=== PATIENT | female | born 1950 | race Caucasian/White ===

== ENCOUNTER 2018-10-13 13:13 | Emergency (ER) | payer OTHER ==
[~2018-10-13] VITALS: Ht 160 cm; Wt 84.9 kg
[~2018-10-13 13:13] MED LIST: AMLO-145 PO; ATOR40TA68 PO; BENA40TA56 PO; CIPR500T4 PO; IBUP-1542 PO; IBUP100T29 PO; LEVO25TA6 PO; OMEP20CA16 PO
[2018-10-13 13:17] VITALS: BP 152/67; PULSE 77; RESP 16; Ht 160 cm; Wt 84.9 kg
[2018-10-13] MEDS ORDERED: CEFTRIAXONE 500 MG INJ IM ONE (14:30)
[2018-10-13] MEDS ORDERED: LIDOCAINE 1% (MPF) 5 ML VIAL INJ ONE (14:30)
== END 2018-10-13 14:56 | disposition home or self-care (01) ==
LOC: FTE 13:13
DX: N30.01 Acute cystitis with hematuria (principal); I10 Essential (primary) hypertension
CPT/HCPCS: 81001; 87086; 96372; 99284; J0696